=== PATIENT | female | born 1970 | race Caucasian/White ===

== ENCOUNTER 2017-07-04 05:55 | Observation (INO) | payer MEDICARE, OTHER ==
[2017-07-04] VITALS (12 sets, daily range): BP systolic 128–174; BP diastolic 50–82; PULSE 71–99; RESP 16–25; O2SAT 93–100
[~2017-07-04] VITALS: Ht 162.6 cm; Wt 82.8 kg
[~2017-07-04 05:55] MED LIST: ACET-171 PO; ALBU2.5V4 INHALATION; ALBU8.5H2 INHALATION; AVA100I IV; BISA10SU61 RC; DARB25DI IJ; DIAZ5TAB PO; DOXE4VIA IV; INSLIS SUBQ; NITR0.4T SL; NPH,100V11 SUBQ; OXYC-530 PO; POLY17PO6 PO; SENNA DOCUSATE PO; THYR30TA2 PO; [UNRECOGNIZED DRUG - CODE] IJ; [UNRECOGNIZED DRUG - CODE] IO
--- NOTE | 2017-07-04 06:09 | ED.REPORT ---
HPI-General Illness Date of Service Jul 04, 2017 ED Provider: Derrick Powers MD This is a 46-year-old female with history of ESRD on hemodialysis, diabetes type I, hypothyroidism and hypertension presents to the emergency department for chest pain. Chest pain started 12 hours ago and has been gradually getting worse. Patient is complaining of left lower chest pain that is sharp, does not radiate, that is worse with breathing in and out as well as leaning forward. She is having associated shortness of breath. She has not had pain like this in the past. She has tried 2 sublingual nitroglycerin and dilaudid without any relief. Currently her pain is 8 out of 10. She denies any fevers, chills, cough, abdominal pain, diarrhea, vomiting. She denies any recent long trips or long periods of immobility. She does note she had cellulitis of both lower legs and was treated with vancomycin for 2 weeks with treatment ending last Sunday. Her regular dialysis schedule is Sunday, Sunday, Sunday, Sunday and she has not missed any of her dialysis lately. She does note she had a change in the dialysis bath 2 weeks ago. Nursing Notes Stated Complaint: CHEST PAIN Chief Complaint: Chest Pain Nursing Notes Reviewed: Yes Allergies: Coded Allergies: DIMITRY Inhibitors (Verified Allergy, Severe, lips and throat swell within minutes, 07/04/17) Insulin Glargine,Hum.Rec.Anlog (Verified Allergy, Severe, severe asthma attack, 07/04/17) Penicillins (Verified Allergy, Severe, severe asthma attack and hives, ) Sulfa (Sulfonamide Antibiotics) (Verified Allergy, Severe, severe asthma and hives, 07/04/17) Sulfonylureas (Verified Allergy, Severe, severe asthma and hives, 07/04/17) amlodipine (Verified Allergy, Severe, edema and elevating BP, 07/04/17) bromocriptine (Verified Allergy, Severe, severe ergotamine BAY--to ER, 07/04) clarithromycin (Verified Allergy, Severe, severe asthma reaction, 07/04/17) clonidine (Verified Allergy, Severe, severe asthma attack, 07/04/17) diltiazem (Verified Allergy, Severe, edema, elevating BP, numb hands/feet , 07/04/17) furosemide (Unverified Allergy, Severe, 07/04/17) hydralazine (Verified Allergy, Severe, edema, dizziness and paralyzing hand cramp, 07/04/17) losartan potassium (Verified Allergy, Severe, edema, elevating BP, numb hands/feet, 07/04/17) olmesartan medoxomil (Verified Allergy, Severe, edema, elevating BP, numb hands/feet, 07/04/17) bimatoprost (Unverified Allergy, Intermediate, 07/04/17) levothyroxine sodium (Verified Allergy, Unknown, 07/04/17) ethacrynic acid (Verified Adverse Reaction, Severe, 07/04/17) NAUSEA/VOMITING prednisone (Unverified Adverse Reaction, Intermediate, 07/04/17) RAPID WEIGHT GAIN, DILATED EYES, VERY HIGH BLOOD SUGARS Uncoded Allergies: Biopatch (Allergy, Severe, Rash,Itching,, 05/02/11) CHLORAPREP (Allergy, Mild, 03/10/14) betablockers (Allergy, Unknown, potential for same asthmatic reaction is too great to try, 09/16/10) NOVALOG INSULIN (Adverse Reaction, Intermediate, 03/10/14) RAPID FLUID WEIGHT GAIN Scheduled Beclomethasone Dipropionate (Qvar) 8.7 Gm Aer.w.adap 2 PUFF INHALATION BID Bevacizumab (Avastin) 100 Mg/4 Ml Vial 100 MG IV Every 6 months Darbepoetin Schuyler in Polysorbat (Aranesp) 25 Mcg/0.42 Ml Syringe 25 MCG IJ Fridays Dexamethasone (Ozurdex) 0.7 Mg Implant 0.7 MG IO Every 4 month Doxercalciferol (Hectorol) 4 Mcg/2 Ml Vial 4 MCG IV 3 times/week dialysi Heparin Sodium,Porcine/Pf (Heparin 2,000 Unit/2 ml Vial) 1,000 Unit/1 Ml Vial 4, 000 UNIT IJ prior to HD Insulin Human Lispro (HumaLOG U100 Insulin Vial) 100 Unit/Ml Unit 10-15 UNIT SUBQ TID-INSULIN Blood Sugar Lispro Correction <151 0 units 151-175 1 unit 176-200 2 units 201-225 3 units 226-250 4 units 251-275 5 units 276-300 6 units 301-325 7 units 326-350 8 units 351-375 9 units 376-400 10 units >400 12 units Check blood sugars before meals and at bedtime. Use correction factor only before meals. NPH, Human Insulin Isophane (HUMulin-N U100 Insulin Vial) 100 Unit/1 Ml Vial 15 UNIT SUBQ BID Thyroid,Pork ([place] Thyroid) 30 Mg Tablet 150 MG PO DAILY Scheduled PRN Acetaminophen (Acetaminophen) 500 Mg Tablet 1,000 MG PO DAILY PRN PRN migraines Albuterol HFA (Proair HFA) 8.5 Gm Hfa.aer.ad 2 PUFFS INHALATION Q4H PRN PRN For Shortness of Breath Albuterol Neb Soln (Albuterol Neb Soln) 2.5 Mg/3 Ml Vial.neb 2.5 MG INHALATION Q4H PRN PRN For Shortness of Breath Nitroglycerin SL (Nitrostat) 0.4 Mg Tab.subl 0.4 MG SL Q5MIN PRN PRN For Chest Pain oxyCODONE (oxyCODONE) 5 Mg Tablet 5-15 MG PO Q3 PRN PRN For Moderate Pain General Time Seen by MD: 06:06 Chief Complaint Chest pain Past Medical History Past Medical History Anemia ESRD Diabetic Retinopathy and Macular edema Neuropathy 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 Thyroidosis End-stage renal disease Hypertension Migraines Reports: Asthma, Diabetes mellitus Past Surgical History Left bunion surgery Bilateral tubal ligation Family History noncontributory Smoking History Never Smoker Social History Alcohol Use: Denies alcohol use Drug Use: Denies drug use Other Social History: Good social support, , Local resident Ambulatory Status Independent Review of Systems Full Review of Systems Constitutional: Denies: Chills, Fever Eyes: Denies: Blurred bilateral Ears / Nose / Throat: Denies: Sore throat Respiratory: Reports: Shortness of breath, Denies: Non-productive cough Cardiovascular: Reports: Chest pain GI: Reports: Nausea, Vomiting (few days prior), Denies: Abdominal pain, Diarrhea Female: Denies: Dysuria Musculoskeletal: Reports: Back pain Hematologic: Denies Bleeding Skin: Reports Itching Allergy / Immune: Reports: Itching Neurologic: Denies: Numbness, Weakness Psychiatric: Denies: Change mental status Complete sys rev & neg: except as marked. Physical Exam Vital Signs Vital Signs Date Time Temp Pulse Resp B/P Pulse Ox O2 Delivery O2 Flow Rate FiO2 07/04/17 10:22 36.8 78 16 164/59 100 Room Air 07/04/17 07:06 36.6 80 18 150/53 100 Room Air 07/04/17 05:57 36.4 80 25 174/72 100 Room Air Initial VS: Reviewed General/Constitutional: Well-developed, Well-nourished Head / Eyes: Atraumatic, Normocephalic ENT: Conjunctiva normal Respiratory: Breath sounds normal, Clear to auscultation Cardiovascular: Regular rate & rhythm, Heart sounds normal, Intact distal pulses Abdomen / GI: Soft, Non-tender, No guarding, No rebound Back: No CVA tenderness Skin: Warm, Dry Neurologic: Alert, Oriented Psychiatric: Mood/affect normal, Behavior normal, Normal thought content General/Constitutional: Awake, No acute distress, Well appearing, Cooperative Lower Ext Edema: Positive: Bilateral 1+ Neurologic: Oriented X3, Speech NL, No sensory deficits, CN II - XII intact Interpretation & Diagnostics Lab Results Interpretation Result Diagram: 07/04/17 0618 07/04/17 0618 Test 07/04/17 06:18 07/04/17 07:30 White Blood Count 8.3th/mm3 (3.8-10.1) Red Blood Count 3.60mil/mm3 (3.90-5.20) Hemoglobin 10.8g/dL (12.0-15.6) Hematocrit 34.9% (35.0-46.0) Mean Corpuscular Volume 96.9fL (81-100) Mean Corpuscular Hemoglobin 30.0pg (27.0-35.0) Mean Corpuscular Hemoglobin Concent 30.9% (32.0-37.0) Red Cell Distribution Width 15.0% (12.3-15.4) Platelet Count 234bil/L (150-400) Neutrophils (%) (Auto) 66.9% (40-74) Lymphocytes (%) (Auto) 20.4% (14-46) Monocytes (%) (Auto) 11.9% (4-12) Eosinophils (%) (Auto) 0% (0-5) Basophils (%) (Auto) 0.4% (0-3) Sodium Level 137mEq/L (134-144) Potassium Level 4.4mEq/L (3.5-5.2) Chloride Level 92mEq/L (97-108) Carbon Dioxide Level 24mmol/L (18-29) Blood Urea Nitrogen 49mg/dL (6-24) Creatinine 5.48mg/dL (0.57-1.00) Estimat Glomerular Filtration Rate 12mL/min (>59) Glucose Level 220mg/dL (60-99) Calcium Level 9.9mg/dL (8.5-10.1) Magnesium Level 2.7mg/dL (1.6-2.6) Total Bilirubin 0.2mg/dL (0.0-1.2) Aspartate Amino Transf (AST/SGOT) 19U/L (0-50) Alanine Aminotransferase (ALT/SGPT) 17U/L (0-32) Alkaline Phosphatase 92U/L (25-150) Total Protein 7.4g/dL (6.4-8.4) Albumin 4.0g/dL (3.4-5.0) Lipase 55U/L (13-60) Hold Dunn Top Tube Received (Received) Hold Urine Received (Received) Re-Eval/Medical Decision Med Decision/Clinical Course In summary, 46-year-old female with a PMHx notable for end-stage renal disease who presents to the ED for evaluation of nonexertional left sided chest pain without radiation since 12 hours ago. Differential includes ACS, PE, PTX, aortic dissection, myocarditis/pericarditis, abdominal etiology such as cholecystitis, MSK pain. Pain has been gradually increasing since 12 hours ago; troponin is elevated at 0.072 in the setting of end-stage renal disease and her last troponin on file at 0.47, 5 years prior. It is difficult to assess whether or not an acute processes occurring and cannot rule out PE or ACS. HEART score is 5. EKG demonstrates sinus rhythm with no acute ischemic changes. She is having pain with inspiration and expiration, however no recent history of extended travel/immobilization, cancer, exogenous estrogen use or surgery. She is PERC negative however has end-stage renal disease which puts her at hypercoagulability risk. No evidence of pneumothorax on chest x-ray or exam. Pain not described as tearing through to the back, CXR w/ no evidence of widened mediastinum, normal neuro exam, and equal pulses to bilateral upper and lower extremities; aortic dissection seems very unlikely. Neither clinical presentation, exam, or EKG seem c/w pericarditis or myocarditis as her pain is exacerbated with leaning forward. No abdominal pain or tenderness. Rest of labs reviewed, which shows hyperkalemia in the setting of end-stage renal disease and her normal dialysis scheduled for today. Patient given aspirin here in the ED, as well as morphine, Dilaudid and Ativan with some relief of symptoms. Patient would likely benefit from a stress test for risk stratification, V/Q perfusion scan and echocardiogram. Patient agreeable to plan, no further questions. Consultation : Referral / Consult Name: Alfred Avendano MD Consulted With: Hospitalist [employer]: Accepts admit Discharge & Departure Primary Impression: Chest pain Chest pain type: unspecified Qualified Code: R07.9 - Chest pain, unspecified Additional Impression: Elevated troponin Disposition: ADMITTED TO HOSPITAL Discharge Condition All VS Reviewed: Yes Condition: Stable Referrals: Catarina Decker MD (PCP) Attending Statement I saw and evaluated the patient in conjunction with the resident. I agree with the plan and findings as documented above. Derrick Powers MD Jul 04, 2017 06:09 Conor De La Cruz DO Jul 04, 2017 06:44
[2017-07-04 06:35] LABS: BASOPHILS % (AUTO) 0.4 % (0-3); EOSINOPHILS % (AUTO) 0 % (0-5); MONOCYTES % (AUTO) 11.9 % (4-12); Mean Corpuscular Volume 96.9 fL (81-100); NEUTROPHILS % (AUTO) 66.9 % (40-74); Platelet Count 234 bil/L (150-400)
[2017-07-04 07:10] LABS: Magnesium 2.7 mg/dL (1.6-2.6)
[2017-07-04 07:29] LABS: TROPONIN T 0.072 ug/L (0.0-0.011)
[2017-07-04] MEDS ORDERED: diphenhydrAMINE 25 mg Capsule PO ONE (08:05)
--- NOTE | 2017-07-04 08:57 | DRSVH ---
PROCEDURE: X-RAY CHEST ONE VIEW, PORTABLE ([id number]) INDICATIONS: CHEST PAIN TECHNIQUE: One view of the chest was acquired. COMPARISON: Reginald Popejoy, CR, CHEST 2VW, 05/15/2017, 10:24 AM. [facility], CR, XR CHES T 1VW (PORTABLE), 11/19/2015, 12:50. FINDINGS: Surgical changes and devices: Vascular stent again seen projected over the right hemithorax inferior to the clavicle. Lungs and pleura: No pleural effusions or pneumothorax. Lung volumes are low. Left basilar airspac e opacity present otherwise lungs are clear. Mediastinum: Mediastinal contours appear normal. Heart size is normal. Bones and chest wall: No suspicious bony lesions. Overlying soft tissues appear unremarkable. IMPRESSION: Left basilar atelectasis versus aspiration or pneumonia. Correlate clinically. Dictated by: Pavel WALLACE Interpreted: Leena Smith MD on 07/04/2017 at 8:55 Transcribed by: CARLOS on 07/04/2017 at 8:56 Approved by: Demetrio Peterson M.D. on 07/04/2017 at 16:53
[2017-07-04] MEDS ORDERED: Nitroglycerin 2% 1 Gm Ointment TOPICAL ONE (10:10)
[2017-07-04] MEDS ORDERED: HYDROmorphone 0.5 mg/0.5 mL iSecure Syringe IVPUSH ONE (10:15)
--- NOTE | 2017-07-04 11:01 | PCM.HPMED ---
Subjective Date of Service Jul 04, 2017 Primary Provider: Admitting Physician: Primary Care Physician: Catarina Decker MD Attending Physician: Chief Complaint: Chest pain History of Present Illness: This is 46-year-old female with a past medical history of ESRD, on HD, history of diabetes mellitus type I, chronic pain, hypothyroidism, hypertension presented to emergency department with chest pain. Chest pain is 5 out of 10, not radiating, located on the left side, under the breast, reproducible on palpation, deep breathing. Patient states that Dilaudid usually helps the pain. Troponin was mildly elevated, probably secondary to end-stage renal disease. Previous troponins were also elevated. Emergency department physician asked to observe the patient in the hospital for further evaluation and management. Chest x-ray showed clear lungs. EKGs - personally reviewed - showed sinus rhythm, heart rate 80, KY 180, QRS T 92, QTC 464. Patient's respiratory rate is 16-17/m, she does not have tachycardia, she does not need oxygen. Patient has no fever, no leukocytosis. Chest x-ray showed left basilar atelectasis. Patient had a stress test several years ago which was normal. She has risk factors for CAD - diabetes. Patient probably will need a stress test, I will also order echo, trend troponins. Nephrology was contacted for hemodialysis. Allergies Coded Allergies: DIMITRY Inhibitors (Verified Allergy, Severe, lips and throat swell within minutes, 07/04/17) Insulin Glargine,Hum.Rec.Anlog (Verified Allergy, Severe, severe asthma attack, 07/04/17) Penicillins (Verified Allergy, Severe, severe asthma attack and hives, ) Sulfa (Sulfonamide Antibiotics) (Verified Allergy, Severe, severe asthma and hives, 07/04/17) Sulfonylureas (Verified Allergy, Severe, severe asthma and hives, 07/04/17) amlodipine (Verified Allergy, Severe, edema and elevating BP, 07/04/17) bromocriptine (Verified Allergy, Severe, severe ergotamine BAY--to ER, 07/04) clarithromycin (Verified Allergy, Severe, severe asthma reaction, 07/04/17) clonidine (Verified Allergy, Severe, severe asthma attack, 07/04/17) diltiazem (Verified Allergy, Severe, edema, elevating BP, numb hands/feet , 07/04/17) furosemide (Unverified Allergy, Severe, 07/04/17) hydralazine (Verified Allergy, Severe, edema, dizziness and paralyzing hand cramp, 07/04/17) losartan potassium (Verified Allergy, Severe, edema, elevating BP, numb hands/feet, 07/04/17) olmesartan medoxomil (Verified Allergy, Severe, edema, elevating BP, numb hands/feet, 07/04/17) bimatoprost (Unverified Allergy, Intermediate, 07/04/17) levothyroxine sodium (Verified Allergy, Unknown, 07/04/17) ethacrynic acid (Verified Adverse Reaction, Severe, 07/04/17) NAUSEA/VOMITING prednisone (Unverified Adverse Reaction, Intermediate, 07/04/17) RAPID WEIGHT GAIN, DILATED EYES, VERY HIGH BLOOD SUGARS Uncoded Allergies: Biopatch (Allergy, Severe, Rash,Itching,, 05/02/11) CHLORAPREP (Allergy, Mild, 03/10/14) betablockers (Allergy, Unknown, potential for same asthmatic reaction is too great to try, 09/16/10) NOVALOG INSULIN (Adverse Reaction, Intermediate, 03/10/14) RAPID FLUID WEIGHT GAIN PMH Family History Hypertension Social History Hx Alcohol Use: No Hx Substance Use: No Hx Tobacco Use: No Smoking Status: Never Smoker Exam Vital Signs Vital Sign - Last Date Time Temp Pulse Resp B/P Pulse Ox O2 Delivery O2 Flow Rate FiO2 07/04/17 10:22 36.8 78 16 164/59 100 Room Air Exam PHYSICAL EXAM: GENERAL: Alert, not in distress, cooperative HEAD: atraumatic, normocephalic, no bruises. EYES: MERRY, EOMI, anicteric, able to fully open and close eyelids SKIN: Skin color normal, turgor normal. No visible rashes or lesions. EAR, NOSE, MOUTH, THROAT: Lips, oral mucosa, tongue gums, oropharynx are moist , pink, no lesions. Ears normal appearance, no lesions. NECK: no jugulovenous distention, no carotid bruits, carotid pulse normal contour, No carotid bruit, no enlarged lymph nodes appreciated; supple ROM normal. RESPIRATORY: Lungs clear to auscultation. Good diaphragmatic excursion. CARDIAC: normal S1 and S2; no rubs, murmurs, or gallops; regular rate and rhythm. Superficial chest pain is reproducible to palpation present ABDOMEN: Abdomen soft, non-tender. BS normal. No masses or organomegaly. MUSCULOSKELETAL: ROM full, muscles are not tender EXTREMITIES: no pitting edema in LE, no new deformities or skin discoloration. NEURO: Alert, oriented X 3, Sensation grossly intact., Cranial nerves II-XII intact, Grossly normal motor function. PULSES: 2+ radial, 2+ carotid REVIEW OF SYSTEMS: GENERAL: no malaise, no fevers., SEE HPI HEENT: Negative for frequent or significant headaches All other reviewed and negative other than HPI. Lab and Diagnostics Result Diagram: 07/04/1761707/04/17617 Assessment & Plan Chest pain - Stable - Trend troponins, do echo - Consider stress test tomorrow End-stage renal disease - Stable - Neurology was contacted for hemodialysis - Monitor kidney function, continue with hemodialysis Anemia of chronic disease - Stable - Monitor Diabetes - Stable - Continue with his insulin, Accu-Chek, diabetic diet DVT PROPHYLAXIS: Heparin Code status: Full code Disposition: Probably home tomorrow Plan of care discussed with ED resident; Labs, radiology tests, and ECG reviewed. Plan of care, medication side effects, home medication, diagnostic procedures and available alternatives were discussed and reviewed with patient. All questions answered. Patient verbalized understanding, approved and agreed to plan of care. Alfred Avendano MD Jul 04, 2017 11:01
[2017-07-04] MEDS ORDERED: BECL8.7A6 INHALATION (11:13)
[2017-07-04] MEDS ORDERED: Polyethylene Glycol (PEG) 17 Gm Powder PO PRN ×2 (11:25→13:25)
[2017-07-04] MEDS ORDERED: Ondansetron 2 mg/mL 2 mL Inj IVPUSH PRN (11:25)
[2017-07-04] MEDS ORDERED: Alum-Mag Hydrox-Simeth 30 mL Suspension PO PRN (11:25)
--- NOTE | 2017-07-04 12:05 | NUR ---
Admit to room 239-2 Pt arrived at 1145 via w/ch from ER. Able to stand and transfer indep to bed. Reporting pain 7/10 pain in left chest with movement and deep breaths. offered Morphine but reports the dilaudid more effective. 1210 new orders received.
[2017-07-04] MEDS: HYDROmorphone 0.5 mg/0.5 mL iSecure Syringe IVPUSH PRN ×2 (13:21→22:51)
[2017-07-04] MEDS ORDERED: Glucose 40% Oral Gel 15 Gm Tube PO PRN (13:25)
[2017-07-04] MEDS ORDERED: Insulin Human NPH 100 Unit/mL 3 mL Inj SUBQ SCH (13:35)
[2017-07-04] MEDS ORDERED: Dextrose 10% 250 ML IV PRN (13:40)
[2017-07-04] MEDS: Albuterol 2.5 mg/3 mL Inhalation Solution NEB PRN ×2 (15:00→22:36)
--- NOTE | 2017-07-04 15:06 | NUR ---
Mentation Pt upset, in pain and SOB. Clarified plan of care with MD, pt stated understanding and felt heard.
[2017-07-04] MEDS ORDERED: Insulin LISPRO 300 Unit/3 mL Inj SUBQ ONE (15:35)
--- NOTE | 2017-07-04 16:12 | NUR ---
Dialysis Pt taken in bed to dialysis room 243-2 mammography tech notified.
--- NOTE | 2017-07-04 16:57 | NUR ---
Dialysis Note pt stable, vitals stable, A&O X3, c/o chest discomfort, nurse notified, pain medication given prior to dialysis right AVG washed with soap/water, cleaned with alcohol, bruit/thrill present, site benign, no redness/drainage lidocaine administered AVG cannulated with 16g needles x1 per site, pt tolerated well heparin 1000units/ml administered treatment started without difficulty, BFR decreased to 325 for continued arterial alarm Addendum: 07/04/17 at 2023 by LAMAR MENARD RN uneventful treatment BFR had to be decreased to 300 due to elevated arterial pressures total treatment hours 3.0 total net removed 3000 treatment end, blood returned, pressure held x10 minutes, bleeding stopped, gauze and tape applied, pt tolerated well report given to RN, pt discharged in stable condition. See DTR for complete treatment record.
[2017-07-04] MEDS ORDERED: LORazepam 1 mg Tablet PO ONE (17:20)
[2017-07-04] MEDS: Insulin LISPRO 300 Unit/3 mL Inj SUBQ SCH ×3 (17:47→21:50)
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
--- NOTE | 2017-07-04 17:51 | NUR ---
Insulin Per patient request: At home takes nutrition Humalog 10-15 units with each meal. Request made to the MD for 10 units (per patient request) "to keep BS below 300"
--- NOTE | 2017-07-04 20:18 | NUR ---
Case Management: Just completed Dialysis. IMM explained to patient at 1951, all questions answered. Signed original placed in chart, copy given to patient. Gina Duvall RN
[2017-07-04] MEDS ORDERED: Insulin Human NPH 100 Unit/mL Syringe SUBQ SCH (20:30)
[2017-07-04] MEDS: Heparin 5,000 Unit/mL Inj SUBQ SCH (20:55)
[2017-07-04] MEDS: Fluticasone 100 mCg Inhaler INHALATION SCH (20:55)
[2017-07-04] MEDS ORDERED: LORazepam 0.5 mg Tablet PO ONE ×2 (21:25)
--- NOTE | 2017-07-04 21:35 | DRSVH ---
PROCEDURE: US VENOUS LEG DUPLEX BILATERAL INDICATIONS: leg edema TECHNIQUE: Real-time imaging, as well as color and pulse Doppler interrogation, were performed of the deep veins of both legs from the inguinal ligament to the popliteal fossa. COMPARISON: [facility] Ultrasound, US, VEINS EXTREMITY DUPLEX,BILAT, 05/13/2015, 7:47. FINDINGS: The deep veins are normally compressible, and free of intraluminal thrombus. Color and pu lse Doppler demonstrate normal phasic intravascular flow. There is normal augmentation response to d istal compression maneuver. IMPRESSION: No DVT in lower extremities bilaterally. Dictated by: Baltazar Dee M.D. on 07/04/2017 at 21:30 Approved by: Baltazar Dee M.D. on 07/04/2017 at 21:33
[2017-07-05 01:04] VITALS: BP 150/68; PULSE 87; RESP 17; O2SAT 96
[2017-07-05] MEDS: Insulin LISPRO 300 Unit/3 mL Inj SUBQ SCH ×5 (02:38→15:05)
[2017-07-05 04:40] VITALS: PULSE 78
[2017-07-05 06:17] VITALS: BP 136/66; PULSE 75; RESP 16; O2SAT 94
--- NOTE | 2017-07-05 07:05 | NUR ---
Blood Glucose Assumed pt care at 1900, pt undergoing dialysis at time of hand off, back to room at 2030, at 203 pt noted, cold/clammy extremities,reporting subjective signs of hypoglycemia, BG check at 62, attempted to give po juice/glucogel per protocol, pt refused, pt stating "I know my body, I need IV dextrose", D10 in 250mls given per protocol, BG check at 0227 BG at 464, spoke to Dr. Cm noted order for 4units lispro, rechecked at 0340 BG at 441, paged Dr. Cm,responded at 0419 noted order to give additional 4units of lispro, at 0615 BG check at 256, call light in reach at all times.
[2017-07-05 08:00] VITALS: BP 166/72; PULSE 84; RESP 18; O2SAT 96
[2017-07-05] MEDS: HYDROmorphone 0.5 mg/0.5 mL iSecure Syringe IVPUSH PRN ×2 (08:20→15:03)
[2017-07-05] MEDS: Heparin 5,000 Unit/mL Inj SUBQ SCH (08:30)
[2017-07-05] MEDS: Fluticasone 100 mCg Inhaler INHALATION SCH (08:30)
--- NOTE | 2017-07-05 08:56 | NUR ---
leg cramps Request made for ativan, per pt request, for leg cramps. Pt takes valium at home for this.
--- NOTE | 2017-07-05 09:32 | NUR ---
right lower leg Pt reports right lower leg shinny this am, right leg slightly increase in size from left. both legs red (came in with this) pain noted in the back of the lower right calf. Will notify
[2017-07-05] MEDS ORDERED: Insulin Human NPH 100 Unit/mL Syringe SUBQ SCH ×2 (09:40→10:55)
[2017-07-05 10:42] LABS: Creatine Kinase 50 U/L (21-215)
--- NOTE | 2017-07-05 10:51 | PCM.PNNEPH ---
Subjective Date of Service Jul 05, 2017 Subjective No LE DVT per Doppler. (+) pleuritic chest pain. HD yesterday, 3L UF. Exam Vital Signs Vital Sign - Last Date Time Temp Pulse Resp B/P Pulse Ox O2 Delivery O2 Flow Rate FiO2 07/05/17 08:00 36.9 84 18 166/72 96 Room Air Intake and Output 07/04/17 07/04/17 07/05/17 Cumulative From/Thru 15:00 23:00 07:00 07/04/17 05:57 - 07/05/17 05:20 Intake Total 1800 ml 375 ml 2175 ml Output Total 3000 ml 30 ml 3030 ml Balance -1200 ml 345 ml -855 ml Intake Oral 1800 ml 375 ml 2175 ml Output Urine Total 30 ml 30 ml Ultrafiltrate 3000 ml 3000 ml # Voids 3 3 Exam General appearance: Awake, alert, oriented x3. No acute distress. HEENT: No pallor. No jaundice. No JVD. No lymphadenopathy. No thyroid enlargement. Heart: Regular rhythm. Normal S1 and S2. Soft systolic murmur noted. Lungs: Decreased breath sounds at bases. No wheezing. No rhonchi. Positive for sporadic chest pain while taking a deep breath. Abdomen: Soft, active bowel sounds. Nontender. Nondistended. No hepatosplenomegaly. Extremity: Trace edema on the lower extremity with chronic skin changes. Right upper extremity with good thrill and bruit. Lab and Diagnostics Result Diagram: 07/04/1761707/04/17617 Plan Impression ASSESSMENT: 1. Left-sided pleuritic chest pain. - Need to r/o PE, pericarditis, PNA. 2. Elevation of troponin. 3. End-stage renal disease, on hemodialysis every Sunday, Sunday, Sunday , and Sunday. 4. 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 5. Hypertension with hypertensive nephrosclerosis. Plan: Echo pending. Nuclear stress test pending. Next HD in am. Ajith Hemphill MD Jul 05, 2017 10:51
[2017-07-05] MEDS ORDERED: Insulin Human NPH 100 Unit/mL Syringe SUBQ ONE (10:55)
--- NOTE | 2017-07-05 11:29 | DRSVH ---
[facility] [address] [place] [address] Echocardiogram Report Name: CHELITA SCHRADER JStudy Isaac e: 07/05/2017 Height: 64 in Hospital Exam Location: [facility] Weight: 183 lb Gender: Female BSA: 1.9 m2 : 1970 Age: 46 yrs BP: 136/ 66 mmHg Reason For Study: CHEST PAIN Ordering Physician: HOSPITALIST [facility] Performed By: Lexy Juarez Referring Physician: Mason Glass Interpretation Summary The left ventricle is normal in size, wall thickness, and systolic function without any focal wall motion abnormalities. The ejection fraction is estimated to be 60-65%. LVEF has not changed since prior study. The right ventricle is normal in size, thickness and function. The right ventricular systolic pressure is estimated at least 24 mmHg assuming a right atrial pressure of 3 mm Hg. The left atrial size is normal. Right atrial size is normal. The anterior leaflet is pliable and mobile while the posterior leaflet is calcified and immobile. The mitral valve mean gradient is 5.4 mmHg. There is mild mitral stenosis. There is no other significant valvular heart disease. The aortic root is normal size. Procedure: A two-dimensional transthoracic echocardiogram with color flow and Doppler was performed. The study quality was technically good. Comparison is made with the echocardiogram of 02/13/13. The patient was in normal sinus rhythm during the exam. Left Ventricle: The left ventricle is normal in size, wall thickness, and systolic function without any focal wall motion abnormalities. The ejection fraction is estimated to be 60-65%. Assessment of diastolic parameters indicates normal left ventricular diastolic function and normal filling pressures. Right Ventricle: The right ventricle is normal in size, thickness and function. Atria: The left atrial size is normal. Right atrial size is normal. There is no Doppler evidence for an interatrial shunt. Mitral Valve: The mitral valve leaflets appear thickened, but open well. There is mild to moderate mitral annular calcification. The anterior leaflet is pliable and mobile while the posterior leaflet is calcified and immobile. There is mild mitral stenosis. The mitral valve mean gradient is 5.4 mmHg. There is no mitral regurgitation noted. Aortic Valve: The aortic valve is normal in structure and function. No aortic regurgitation is present. Tricuspid Valve: The tricuspid valve is normal. There is a trace or physiologic amount of tricuspid regurgitation. The right ventricular systolic pressure is estimated at least 24 mmHg assuming a right atrial pressure of 3 mm Hg. Compared to the prior echo exam, there has been no change in the severity of pulmonary hypertension. Pulmonic Valve: The pulmonic valve leaflets are thin and pliable; valve motion is normal. There is a trace or physiologic amount of pulmonic regurgitation. There is no other significant valvular heart disease. Great Vessels: The aortic root is normal size. The ascending aorta is normal in size. The aortic arch is normal in size. The pulmonary artery is not well visualized, but is probably normal size. The IVC is of normal diameter and collapses greater than 50% with a sniff. This suggests a low right atrial pressure of 3 mm Hg. Pericardium/ Pleura There is no pericardial effusion. There is no pleural effusion. MMode/2D Measurements & Calculations LVIDd: 4.9 cm RA long axis LVOT diam: 1.9 cm LVIDs: 2.6 cm LA A2 area: 17.3 cm AoV Opening FS: 48.2 % LA A4 area: 21.6 cm RA area EPSS: 0.49 cm LA length (vol) Ao root diam IVSd: 0.90 cm : 16.3 cm LVPWd: 1.0 cm LA vol: 61.8 ml RA vol asc Aorta Diam LA vol index : 42.7 ml RA Ao Arch Diam (Prox : 22.7 mm2 Trans): 3.0 cm IVC diam: 1.8 cm LV caraballo. diameter/BSA LV sys. diameter/BSA RVD1 (basal) RVD2 (mid): 3.0 cm (cm/m^2): 2.6 (cm/m^2): 1.4 Doppler Measurements & Calculations Ao V2 max MV E max jose MV E/A: 1.0 TR max jose : 207.5 cm/sec : 145.0 cm/sec Med Peak E' Jose : 230.5 cm/sec Ao max PG MV A max jose TR max PG : 17.2 mmHg : 138.5 cm/sec E/E' med: 17.9 : 21.2 mmHg Ao mean PG MV P1/2t: 79.6 msec Lat Peak E' Jose PA V2 max : 95.3 cm/sec LVOT Max Jose MVA(VTI): 2.6 cm2 E/E' lat: 10.1 PA mean PG : 157.2 cm/sec E/e' average: 14.0 PA Accel Time ZEYNEP(I,D): 2.4 cm : 0.09 sec sev ratio MV V2 mean MV P1/2t max jose Ao V2 mean LV V1 max PG : 107.5 cm/sec : 128.2 cm/sec MV mean PG MVA(P1/2t): 2.8 cm2 Ao V2 VTI: 39.9 cm LV V1 VTI ZEYNEP(V,D): 2.2 cm2 : 33.8 cm MV V2 VTI: 37.0 cm MV dec time : 0.27 sec PA V2 mean ZEYNEP indexed to BSA : 64.7 cm/sec (cm^2/m^2): 1.3 Reading Physician:NICOLETTE
--- NOTE | 2017-07-05 14:10 | PCM.PNMED ---
Subjective Date of Service Jul 05, 2017 Subjective Patient is in bed, complaining of intermittent left-sided chest pain that is located under her breast, reproducible to palpation and deep breathing. Patient is on hemodialysis. Occupational Therapy Department Chair was consulted and recommended to continue with hemodialysis, and VQ scan, nuclear stress test. Exam Vital Signs Vital Sign - Last Date Time Temp Pulse Resp B/P Pulse Ox O2 Delivery O2 Flow Rate FiO2 07/05/17 08:00 36.9 84 18 166/72 96 Room Air Intake and Output 07/04/17 07/04/17 07/05/17 Cumulative From/Thru 15:00 23:00 07:00 07/04/17 05:57 - 07/05/17 05:20 Intake Total 1800 ml 375 ml 2175 ml Output Total 3000 ml 30 ml 3030 ml Balance -1200 ml 345 ml -855 ml Intake Oral 1800 ml 375 ml 2175 ml Output Urine Total 30 ml 30 ml Ultrafiltrate 3000 ml 3000 ml # Voids 3 3 Exam PHYSICAL EXAM: GENERAL: Alert, not in distress, cooperative HEAD: atraumatic, normocephalic, no bruises. EYES: MERRY, EOMI, anicteric, able to fully open and close eyelids SKIN: Skin color normal, turgor normal. No visible rashes or lesions. EAR, NOSE, MOUTH, THROAT: Lips, oral mucosa, tongue are moist, pink, no lesions. Ears normal appearance, no lesions. NECK: supple ROM normal. RESPIRATORY: Lungs clear to auscultation. Good diaphragmatic excursion. Normal percussion sound. CARDIAC: normal S1 and S2; no rubs, murmurs, or gallops; regular rate and rhythm ABDOMEN: Abdomen soft, non-tender. BS normal. No masses or organomegaly. MUSCULOSKELETAL: ROM full, muscles are not tender EXTREMITIES: +1 pitting edema in LE, no new deformities or skin discoloration. NEURO: Alert, oriented X 3 Cranial nerves II-XII intact, Grossly normal motor function. PULSES: 2+ radial, 2+ carotid REVIEW OF SYSTEMS: GENERAL: No weight loss, no malaise, no fevers., SEE HPI HEENT: Negative for frequent or significant headaches All other reviewed and negative other than HPI. IVs and Medications Medications Reviewed: Medications were reviewed in detail Lab and Diagnostics Result Diagram: 07/04/1761707/04/17617 X-Rays, CTs and MRIs US LE IMPRESSION: No DVT in lower extremities bilaterally. CXR IMPRESSION: Left basilar atelectasis versus aspiration or pneumonia. Cardiac Echo Impressions Interpretation Summary The left ventricle is normal in size, wall thickness, and systolic function without any focal wall motion abnormalities. The ejection fraction is estimated to be 60-65%. LVEF has not changed since prior study. The right ventricle is normal in size, thickness and function. The right ventricular systolic pressure is estimated at least 24 mmHg assuming a right atrial pressure of 3 mm Hg. The left atrial size is normal. Right atrial size is normal. The anterior leaflet is pliable and mobile while the posterior leaflet is calcified and immobile. The mitral valve mean gradient is 5.4 mmHg. There is mild mitral stenosis. There is no other significant valvular heart disease. The aortic root is normal size. Assessment & Plan Chest pain - Stable, no tachycardia, no tachypnea, patient does not need oxygen, no leukocytosis - Troponin elevated - Procalcitonin is elevated which is expected in this setting of End-stage renal disease Plan - stress test - Consider VQ scan if patient agrees End-stage renal disease - Stable - Neurology was contacted for hemodialysis - Monitor kidney function, continue with hemodialysis Anemia of chronic disease - Stable Diabetes - Stable - Continue with his insulin, Accu-Chek, diabetic diet DVT PROPHYLAXIS: Heparin Code status: Full code Disposition: Probably home tomorrow Labs, radiology tests, and ECG reviewed. Plan of care, medication side effects, home medication, diagnostic procedures and available alternatives were discussed and reviewed with patient. All questions answered. Patient verbalized understanding, approved and agreed to plan of care. Alfred Avendano MD Jul 05, 2017 14:10
[2017-07-05 14:50] VITALS: BP 171/74; PULSE 90; RESP 20; O2SAT 97
--- NOTE | 2017-07-05 15:16 | NUR ---
Return from stress test Pt returned from nuc med c/o 05/14 pain left chest with cough and deep breath, rx given BS 420 - covered with nutritional dose soup and cheese provided for snack as didn't eat breakfast or lunch.
--- NOTE | 2017-07-05 15:49 | NUR ---
Leg cramps pt c/o leg cramps. States usually doesn't keep leg out in front of her so long. requesting ativan. New order received for flexaril
[2017-07-05 15:55] VITALS: PULSE 92; RESP 20; O2SAT 96
[2017-07-05] MEDS: Albuterol 2.5 mg/3 mL Inhalation Solution NEB PRN (15:55)
--- NOTE | 2017-07-05 15:57 | DRSVH ---
PROCEDURE: 1 DAY PHARMACOLOGICAL STRESS TEST Rest and pharmacological stress myocardial perfusion SPECT with gated imaging and ejection fraction RADIOPHARMACEUTICAL: 8.69 mCi Tc-99m tetrafosmin IV at rest and 26 mCi Tc-99m tetrafosmin IV at peak effect of pharmacological stress. A lnz-wwe-wygjjsou was performed. INDICATIONS: Chest pain. TECHNIQUE: Radiopharmaceutical was injected at peak stress test, and also at rest. SPECT images wer e obtained. SPECT myocardial perfusion images were displayed in short axis, horizontal long axis, an d vertical long axis views. Gated images were reviewed using [employer] software. COMPARISON: None. CARDIAC STRESS: A pharmacologic stress test was performed under the supervision of an attending staff, using an infus ion of lexiscan . Hemodynamic data: There is normal blood pressure and heart rate response to pharmacologic stress. Symptoms: The patient denied anginal chest pain. Aminophylline: 75mg EKG: No diagnostic changes of ischemia; no ectopy. FINDINGS: Raw data: There is good myocardial uptake of radiotracer. No significant motion artifacts. Left ventricle function: Gated images demonstrate normal left ventricular wall thickening. No segme ntal wall motion abnormalities. Left ventricle resting end diastolic volume is 102 mL. Left ventric le stress ejection fraction is >70% ; normal range is above 45%. Myocardial perfusion: There is a small area of moderately decreased uptake affecting the lateral api joshua segment that appears fixed (and somewhat worse on the rest images). This area moves/thickens on the gated images. The finding also normalizes on the prone images. No other imaging defects appreci ated. IMPRESSION: 1. Appropriate hemodynamic response to stress. 2. No chest pain or significant ECG changes with stress. 3. No scintigraphic evidence for significant areas of myocardial ischemia at the level of stress achi eved. 4. Normal left ventricular size and systolic function Dictated by: Nallely Trejo M.D. on 07/05/2017 at 15:47 Approved by: Nallely Trejo M.D. on 07/05/2017 at 15:55
[2017-07-05] MEDS ORDERED: OXYC-530 PO (16:03)
[2017-07-05] MEDS ORDERED: CYCL10TA9 PO (16:11)
--- NOTE | 2017-07-05 16:26 | NUR ---
Case Management: COS completed to Observation, this is a condition 44. ACOSTA explained to patient at 1625, all questions answered.Signed original placed in chart, copy given to patient. Zehra Amato RN Addendum: 07/05/17 at 1632 by ZEHRA AMATO COS completed per Francis recommendation and Dr. Avendano's agreement.
--- NOTE | 2017-07-05 16:48 | NUR ---
Social Work: Brief Note / Discharge SW visited patient's room on two occasions attempting to complete initial assessment. On first attempt, patient was out of room for a procedure. On second attempt, patient was receiving a breathing treatment. Patient is now observation status and scheduled for discharge this evening. EMR reviewed. Patient was discussed in morning rounds. Patient has been deemed medically stable for discharge today. Transportation will be provided by family member via POV. Patient has no additional needs at this time. INDY Duque
--- NOTE | 2017-07-05 17:05 | PCM.DC.MED ---
Discharge Summary Date of Service Jul 05, 2017 Dates of Hospitalization Date of Hospital Admission Jul 04, 2017 at 11:00 Date of Discharge: Jul 05, 2017 Providers: Admitting Physician: Alfred Avendano MD Primary Care Physician: Catarina Decker MD Attending Physician: Alfred Avendano MD Diagnosis at Time of Discharge Diagnosis at Time of Discharge Musculoskeletal chest pain Consultations Nephrology Procedures XRay, CTs & MRIs US LE IMPRESSION: No DVT in lower extremities bilaterally. CXR IMPRESSION: Left basilar atelectasis versus aspiration or pneumonia. Cardiac Echo Impression Interpretation Summary The left ventricle is normal in size, wall thickness, and systolic function without any focal wall motion abnormalities. The ejection fraction is estimated to be 60-65%. LVEF has not changed since prior study. The right ventricle is normal in size, thickness and function. The right ventricular systolic pressure is estimated at least 24 mmHg assuming a right atrial pressure of 3 mm Hg. The left atrial size is normal. Right atrial size is normal. The anterior leaflet is pliable and mobile while the posterior leaflet is calcified and immobile. The mitral valve mean gradient is 5.4 mmHg. There is mild mitral stenosis. There is no other significant valvular heart disease. The aortic root is normal size. Other Diagnostics NM stress test IMPRESSION: 1. Appropriate hemodynamic response to stress. 2. No chest pain or significant ECG changes with stress. 3. No scintigraphic evidence for significant areas of myocardial ischemia at the level of stress achieved. 4. Normal left ventricular size and systolic function Hospital Course This is 46-year-old female with a past medical history of ESRD, on HD, history of diabetes mellitus type I, chronic back pain(was taking Dilaudid PRN at home) presented to emergency department with chest pain. Chest pain was 5 out of 10, not radiating, located on the left side, under the breast, reproducible on palpation, deep breathing. Patient stated that Dilaudid usually helped the pain. Troponin was mildly elevated, stable. Emergency department physician asked to observe the patient in the hospital for further evaluation and management. Chest x-ray showed clear lungs. EKGs - showed sinus rhythm, heart rate 80, DC 180, QRS T 92, QTC 464. Patient's respiratory rate is 16-17/m, she did not have tachycardia, she did not need oxygen. Patient had no fever, no leukocytosis. Chest x-ray showed left basilar atelectasis. Patient had a stress test several years ago which was normal, the intended troponin, monitor the patient on telemetry. She had risk factors for CAD - diabetes, ESRD. Nuclear medicine stress test was done and was normal. Nephrology was contacted for hemodialysis. Echo was done and was basically normal, see below. Nephrology would like to rule out PE/DVT. Ultrasound of lower extremities was ordered and did not show any DVT. After patient had her stress test I discussed further plan of care and possible V/Q scan to rule out PE. Patient did not want to wait for the VQ scan, she asked me to discharge her home. While in the hospital she had some muscle cramps in her lower legs, which were chronic. She was asking for Ativan. She received several doses of Ativan for muscle cramps. I ordered Flexeril 5 mg 3 times a day to help her cramps. Patient received prescription for oxycodone PO, PRN. Patient stated she was not able to take ibuprofen because of her kidney disease. After patient improved and she was discharged home with recommendation to follow up with her PCP and card decorator for further management of her medical problems. Patient was aware that opioids can cause psychological and physical addiction. She is improved that she should not drive while under influence of opioids. Patient Condition @ Discharge: good Discharge Disposition: home Discharge Activity: resume regular activity, patient was advised to avoid heavy physical work or exertion . Discharge Diet: regular *renal diet, heart healthy, low fat, low salt, high fiber Information Provided to Patient: information about discharge medications Discharge Medications: I discussed with patient medication dosage, usage, goals of therapy, side effects, alternatives. During discharge patient was allert, oriented, fully competent, able to make own informed decisions. We discussed possible severe side effects, adverse reactions, benefits, risks, alternatives of current and newly prescribed medications and diagnostic procedures. Patient verbalized understanding and agreed to current plan of care and discharge. TIME SPENT IN DISCHARGE ACTIVITY: Face to face activity greater then 30 minutes spent in discharge activity. 1. Discussed with patient re: discharge plan of care/treatment, and follow up care/services. 2. Patient agreed with discharge plan and further plan of care, all questions were answered/addressed, no further questions at the time of discharge. Exam Vital Signs (Last) Date Time Temp Pulse Resp B/P Pulse Ox O2 Delivery O2 Flow Rate FiO2 07/05/17 15:55 92 20 96 Room Air 07/05/17 14:50 37.0 171/74 Test 07/04/17 06:18 07/04/17 07:30 07/04/17 19:10 07/05/17 07:14 White Blood Count 8.3th/mm3 (3.8-10.1) Red Blood Count 3.60mil/mm3 (3.90-5.20) Hemoglobin 10.8g/dL (12.0-15.6) Hematocrit 34.9% (35.0-46.0) Mean Corpuscular Volume 96.9fL (81-100) Mean Corpuscular Hemoglobin 30.0pg (27.0-35.0) Mean Corpuscular Hemoglobin Concent 30.9% (32.0-37.0) Red Cell Distribution Width 15.0% (12.3-15.4) Platelet Count 234bil/L (150-400) Neutrophils (%) (Auto) 66.9% (40-74) Lymphocytes (%) (Auto) 20.4% (14-46) Monocytes (%) (Auto) 11.9% (4-12) Eosinophils (%) (Auto) 0% (0-5) Basophils (%) (Auto) 0.4% (0-3) Sodium Level 137mEq/L (134-144) Potassium Level 4.4mEq/L (3.5-5.2) Chloride Level 92mEq/L (97-108) Carbon Dioxide Level 24mmol/L (18-29) Blood Urea Nitrogen 49mg/dL (6-24) Creatinine 5.48mg/dL (0.57-1.00) Estimat Glomerular Filtration Rate 12mL/min (>59) Glucose Level 220mg/dL (60-99) Calcium Level 9.9mg/dL (8.5-10.1) Total Bilirubin 0.2mg/dL (0.0-1.2) Aspartate Amino Transf (AST/SGOT) 19U/L (0-50) Alanine Aminotransferase (ALT/SGPT) 17U/L (0-32) Alkaline Phosphatase 92U/L (25-150) Total Protein 7.4g/dL (6.4-8.4) Albumin 4.0g/dL (3.4-5.0) Lipase 55U/L (13-60) Hold Dunn Top Tube Received (Received) Hold Urine Received (Received) Troponin T 0.072ug/L (0.0-0.011) Hold Purple Top Tube Received (Received) Magnesium Level 2.3mg/dL (1.6-2.6) Total Creatine Kinase 50U/L (21-215) Creatine Kinase MB 2.1ng/mL (0.0-5.3) Creatine Kinase MB % % (0.0-5.0) Procalcitonin 0.59ng/mL (0.00-0.08) Hold [place] Top Tube Received (Received) Discharge Medications Discharge Medications Beclomethasone Dipropionate (Qvar) 8.7 Gm Aer.w.adap 2 PUFF INHALATION BID ( Reported) Bevacizumab (Avastin) 100 Mg/4 Ml Vial 100 MG IV Every 6 months (Reported) Darbepoetin Schuyler in Polysorbat (Aranesp) 25 Mcg/0.42 Ml Syringe 25 MCG IJ Fridays (Reported) Dexamethasone (Ozurdex) 0.7 Mg Implant 0.7 MG IO Every 4 month (Reported) Doxercalciferol (Hectorol) 4 Mcg/2 Ml Vial 4 MCG IV 3 times/week dialysi ( Reported) Heparin Sodium,Porcine/Pf (Heparin 2,000 Unit/2 ml Vial) 1,000 Unit/1 Ml Vial 4, 000 UNIT IJ prior to HD (Reported) Insulin Human Lispro (HumaLOG U100 Insulin Vial) 100 Unit/Ml Unit 10-15 UNIT SUBQ TID-INSULIN (Reported) Blood Sugar Lispro Correction <151 0 units 151-175 1 unit 176-200 2 units 201-225 3 units 226-250 4 units 251-275 5 units 276-300 6 units 301-325 7 units 326-350 8 units 351-375 9 units 376-400 10 units >400 12 units Check blood sugars before meals and at bedtime. Use correction factor only before meals. NPH, Human Insulin Isophane (HUMulin-N U100 Insulin Vial) 100 Unit/1 Ml Vial 15 UNIT SUBQ BID (Reported) Thyroid,Pork ([place] Thyroid) 30 Mg Tablet 150 MG PO DAILY (Reported) As needed Acetaminophen (Acetaminophen) 500 Mg Tablet 1,000 MG PO DAILY PRN PRN migraines (Reported) Albuterol HFA (Proair HFA) 8.5 Gm Hfa.aer.ad 2 PUFFS INHALATION Q4H PRN PRN For Shortness of Breath (Reported) Albuterol Neb Soln (Albuterol Neb Soln) 2.5 Mg/3 Ml Vial.neb 2.5 MG INHALATION Q4H PRN PRN For Shortness of Breath (Reported) Cyclobenzaprine (Cyclobenzaprine) 10 Mg Tablet 5 MG PO TID PRN PRN For Spasm Prescribed by: MELVIN LOERA MD oxyCODONE (oxyCODONE) 5 Mg Tablet 5-10 MG PO Q4H PRN PRN For Moderate Pain Prescribed by: MD Melvin CHILDRESS Andriy MD Jul 05, 2017 17:05
--- NOTE | 2017-07-05 17:37 | NUR ---
Discharge at 1645 Reviewed DC instructions with patient and . Stated understanding 2 hard scripts sent in packet Pt taken out in w/ch to home in private auto with . All belongings taken.
== END 2017-07-05 16:45 | disposition home or self-care (01) ==
LOC: SED 05:55 → MOC 11:00 → INTOOBSV 11:00 → MOC 11:50
PROVIDERS: ADMIT Internal Medicine; ATTEND Internal Medicine
DX: R07.89 Other chest pain (principal); N18.6 End stage renal disease; E10.22 Type 1 diabetes mellitus with diabetic chronic kidney disease; D63.1 Anemia in chronic kidney disease; Z99.2 Dependence on renal dialysis; M54.9 Dorsalgia, unspecified; I10 Essential (primary) hypertension; E03.9 Hypothyroidism, unspecified; J45.909 Unspecified asthma, uncomplicated; G43.909 Migraine, unspecified, not intractable, without status migrainosus; E10.21 Type 1 diabetes mellitus with diabetic nephropathy; E10.40 Type 1 diabetes mellitus with diabetic neuropathy, unspecified; H40.9 Unspecified glaucoma; E10.311 Type 1 diabetes mellitus with unspecified diabetic retinopathy with macular edema; D35.2 Benign neoplasm of pituitary gland; Z79.4 Long term (current) use of insulin; Z79.51 Long term (current) use of inhaled steroids
CPT/HCPCS: 36415; 71010; 78452; 80053; 82550; 82553; 83036; 83690; 83735; 84145; 84484; 85025; 93005; 93017; 93970; 94640; 94664; 96374; 96375; 96376; 99285; A9502; C8929; G0378; J1170; J1200; J1644; J1815; J2060; J2270; J2785